=== PATIENT | female | born 1945 | race African-American/Black ===

== ENCOUNTER 2017-09-23 13:35 | Inpatient (IN) | payer OTHER ==
[~2017-09-23] VITALS: Ht 160 cm; Wt 61.7 kg
--- NOTE | ~2017-09-23 | HC ---
[facility] [place] [address] CONSULTATION Name: TAWANA CAMPBELL Room #: 358-P ADM IN M.R.#: [id number] Admission: 09/23/17 Attend Phys: Magdiel Stapleton MD Discharge: Date of : 41 Report #: [id number] THIS REPORT FOR: //name// CC: Magdiel Otto DATE OF SERVICE: 09/24/2017 HISTORY OF PRESENT ILLNESS: This is a 72-year-old female patient who was seen by me for the facial numbness. This patient is going for an MRI, so I saw her, and we will also see her later on today after the MRI. She indicates that she is having episodic numbness on the left side of the face for almost 2 weeks now. Her history is not very clear. It comes and goes, but how long it lasts is not clear. Usually it lasts just for a few minutes. It is not associated with any ataxia or ambulation difficulty. She is a diabetic, but she controls it with the diet and does not check her blood sugar very often and does not know what the blood sugar is when these episodes happen. This episode started spontaneously without any trauma and without any significant pain. REVIEW OF SYSTEMS: Indicates she is hypertensive, and she takes medications for that. She does have elevated blood sugar, and she controls it with diet. She does not have any prior history of stroke. She denies any anxiety or depression. She does have trouble with the right eye, which is old. She said she has lost the vision there because the doctor told she has cataract. Clinically that eye does not appear to have much vision. I carried out the 14-point review of systems from the patient as well as the chart, and this was her relevant review of system. She is not complaining of any cardiac, respiratory, GI, , musculoskeletal, constitutional, dermatological, hematological, psychiatric, throat or allergic symptom associated with present symptomatology. PAST MEDICAL HISTORY: Negative for any stroke. FAMILY HISTORY: Negative for any early age stroke. SOCIAL HISTORY: She indicates she does not drink any alcohol or smoke. PHYSICAL EXAMINATION: Indicates she is alert. She is responsive. She is able to follow simple and complex command. Her speech, concentration, fund of knowledge and memory are at her baseline. Cranial nerve examination 2-12 looks clinically unremarkable. Facial examination looks unremarkable, but the patient does have trouble with the right eye and that is old and is because of ophthalmological problem. She does appear to have a symmetrical strength, sensation, reflexes and tone in all 4 extremities. I cannot look at the fundus on the left side. There is no cerebellar sign. She does appear moderately built individual who does not have any dysmorphic features of the face and is [facility] [address] [place] [address] CONSULTATION Name: TAWANA CAMPBELL Room #: 358-P [facility] IN M.R.#: [id number] Admission: 09/23/17 Attend Phys: Magdiel Stapleton MD Discharge: Date of : 43 Report #: [id number] mainly having this pain and paraesthesia. Her vision in the left eye is good. Right eye she cannot see much. Her hearing is adequate. She does have pulses in the lower extremities, and there is no edema, cyanosis or jaundice. Cardiac examination appears unremarkable. She does not appear to be in any respiratory difficulty or has any rhonchi on either side. Blood pressure is 140/77, respirations 16, pulse is 79, temperature is 98.7. LABORATORY DATA: She is anemic with a hemoglobin of 9.4, in spite of the fact that the kidney function is normal. Her B12 was also normal. She did have a CT scan of the head when she came in and does not appear to be showing any acute abnormality. She does have significant chronic changes. IMPRESSION: Numbness which is episodic in the face of unknown etiology at the moment. I agree with the plan of working her up for a transient ischemic attack. She is scheduled for an MRI and a carotid Doppler, and we will see what does that show. I think we should also do some collagen vascular disorder workup, and I will order that. Further workup and management will depend upon the outcome of these testing. If these testing indicated that she does have findings suggestive of ischemic disease to the brain or transient ischemic attack, then we will manage accordingly. Otherwise, we will do some further workup. Thank you very much for this referral, and we will follow this patient along with you. <ELECTRONICALLY SIGNED> By: Selwyn Shah MD 09/25/17 1349 [id number] 1155 Selwyn Shah MD /nt
--- NOTE | ~2017-09-23 | EKG ---
[address] [employer] [place] [address] ELECTROCARDIOGRAM REPORT Name: TAWANA CAMPBELL Room #: 358-P ADM IN M.R.#: [id number] Admission: 09/23/17 Attend Phys: Magdiel Stapleton MD Discharge: Date of : 41 Report #: [id number] THIS REPORT FOR: //name// [facility] ED Test Date: 2017-09-23 Test Time: 13:53:18 Pat Name: TAWANA CAMPBELL Department: Room: Gender: F Piecer: TRUE : 1945 Requested By: Daya Chan Order Number: [id number] MD: Bryant Champion Measurements Intervals Goessel Rate: 82 P: 69 SD: 145 QRS: 31 QRSD: 90 T: 28 QT: 372 QTc: 435 Interpretive Statements Sinus rhythm LAE, consider biatrial enlargement Compared to ECG 04/08/2017 16:17:39 No significant changes Electronically Signed On 09-24-2017 7:03:17 CDT by Bryant Champion [email or web address] <ELECTRONICALLY SIGNED> By: Bryant Champion MD 09/24/17 0703 1353 Bryant Champion MD /SHAILESH
--- NOTE | ~2017-09-23 | 2DMMODE ---
[facility] [address] [place] [address] 2 D/M-MODE ECHOCARDIOGRAM Name: TAWANA CAMPBELL Room #: 358-P ADM IN M.R.#: [id number] Admission: 09/23/17 Attend Phys: Magdiel Stapleton, Discharge: Date of : 41 Date of Service: 09/24/17 1133 Report #: [id number] THIS REPORT FOR: //name// APPROVED REPORT Study performed: 09/24/2017 10:35:25 EXAM: Comprehensive 2D, Doppler, and color-flow Echocardiogram Patient Location: Echo lab Room #: 358 Status: routine BSA: 1.62 HR: 87 bpm BP: 140/77 mmHg Other Information Study Quality: Good Indications CVA/TIA Diabetes Hypertension/HDD Echo Enhancing Agent Indication: Rule out Shunt Agent(s) / Amount(s) Used: Agitated Saline 7 cc 2D Dimensions RVDd: 29.41 mm LVEF(%): 69.49 (>50%) IVSd: 7.60 (7-11mm) LVOT Diam: 17.56 (18-24mm) LVDd: 41.38 mm PWd: 8.26 (7-11mm) Ascending Ao: 28.18 (22-36mm) LVDs: 25.37 (25-40mm) Aortic Root: 26.69 mm IVC: 9.00 mm Escamilla's LVEF: 69.49 % Volumes Left Atrial Volume (Systole) Single Plane 4CH: 36.78 mL Single Plane 2CH: 42.26 mL LA ESV Index: 28.00 mL/m2 Aortic Valve AoV Peak Levon.: 1.88 m/s AO Peak Gr.: 14.16 mmHg LVOT Max P.97 mmHg LVOT Max V: 1.41 m/s [facility] [place] [address] 2 D/M-MODE ECHOCARDIOGRAM Name: SHANNANTAWANA ROYAL Room #: 358-P [facility] IN M.R.#: [id number] Admission: 09/23/17 Attend Phys: Magdiel Stapleton, Discharge: Date of : 41 Date of Service: 09/24/17 1133 Report #: [id number] ERIC Vmax: 1.82 cm2 Mitral Valve E/A Ratio: 0.7 MV Decel. Time: 404.00 ms MV E Max Levon.: 0.89 m/s MV A Levon.: 1.23 m/s MV PHT: 117.16 ms IVRT: 106.11 ms Pulmonary Valve PV Peak Levon.: 1.27 m/s PV Peak Gr.: 6.41 mmHg Pulmonary Vein P Vein S: 0.61 m/s P Vein A: 0.34 m/s P Vein D: 0.31 m/s P Vein A Dur.: 115.3 msec P Vein S/D Ratio: 1.97 Left Ventricle The left ventricle is normal size. There is normal LV segmental wall motion. There is normal left ventricular wall thickness. The left ventricular systolic function is hyperdynamic The left ventricular ejection fraction is within the normal range. LVEF 65%. Grade I - abnormal relaxation pattern. Right Ventricle The right ventricle is normal size. The right ventricular systolic function is normal. Atria The left atrium size is normal. No shunting by contrast bubble injection The right atrium size is normal. Aortic Valve The aortic valve is normal in structure. No aortic regurgitation is present. There is no aortic valvular stenosis. Mitral Valve The mitral valve is normal in structure. There is no mitral valve regurgitation noted. No evidence of mitral valve stenosis. Tricuspid Valve The tricuspid valve is normal in structure. There is no tricuspid valve regurgitation noted. Pulmonic Valve [address] [address] 2 D/M-MODE ECHOCARDIOGRAM Name: TAWANA CAMPBELL Room #: 358-P [facility] IN [facility]#: [id number] Admission: 09/23/17 Attend Phys: Magdiel Stapleton, Discharge: Date of : 41 Date of Service: 09/24/17 1133 Report #: [id number] The pulmonary valve is normal in structure. Trace pulmonic regurgitation. Great Vessels The aortic root is normal in size. IVC is normal in size and collapses >50% with inspiration. Pericardium There is no pericardial effusion. <Conclusion> The left ventricular systolic function is hyperdynamic There is normal LV segmental wall motion. LVEF 65-70%. Grade I diastolic dysfunction No shunting by contrast bubble injection The aortic valve is normal in structure. No aortic regurgitation or stenosis Structurally normal mitral valve. No mitral insufficiency Pulmonary artery pressure could not be reliably ascertained There is no pericardial effusion. <ELECTRONICALLY SIGNED> By: You aYn MD, FACC 09/24/17 1133 1133 1133 You Yan MD, FACC /INF
[~2017-09-23 13:35] MED LIST: HYDROCHLOROTH12.5 M1 PO; LISINOPRIL20 MG PO; NORVASC2.5 MG PO
[2017-09-23 13:53] VITALS: BP 171/83
[2017-09-23 14:26] LABS: ABSOLUTE NEUTROPHILS 2.8 thou/uL (1.4-8.2); EOSINOPHILS 0.6 % (0.0-3.0); HEMOGLOBIN 10.4 gm/dL (12.0-15.0); LYMPHOCYTES 32.4 % (24.0-44.0); MCH 22.2 pg (26.0-34.0); MCHC 33.4 g/dL (28.0-37.0); MCV 66.5 fL (80.0-100.0); MONOCYTES 10.1 % (1.0-8.0); PLATELET COUNT 343 thou/uL (150-400); POLYS 55.9 % (36.0-66.0); RBC 4.67 mil/uL (4.20-5.00); RDW 16.1 % (10.5-14.5)
[2017-09-23 14:38] LABS: CALCIUM 9.1 mg/dL (8.5-10.1); CREATININE 0.5 mg/dL (0.6-1.0); POTASSIUM 4.1 mmol/L (3.5-5.1)
[2017-09-23 15:09] LABS: URINE BILIRUBIN NEGATIVE (Negative); URINE BLOOD NEGATIVE (Negative); URINE CLARITY CLEAR; URINE COLOR YELLOW; URINE GLUCOSE-RANDOM* NEGATIVE (Negative); URINE KETONES NEGATIVE (Negative); URINE LEUKOCYTES 1+ (Negative); URINE NITRITE NEGATIVE (Negative); URINE PROTEIN (DIPSTICK) NEGATIVE (Negative); URINE SPECIFIC GRAVITY <= 1.005 (1.005-1.035); URINE UROBILINOGEN 0.2 E.U./dl (0.2-1.0)
[2017-09-23] MEDS ORDERED: LISINOPRIL-HCT1 EAC1 PO (15:17)
[2017-09-23] MEDS ORDERED: MULTIVITAMINS1 EAC7 PO (15:18)
[2017-09-23] MEDS ORDERED: CALCIUM ACETATE1 GM PO (15:19)
[2017-09-23 15:22] VITALS: BP 176/83
[2017-09-23 15:25] LABS: SQUAMOUS 0-3 Few /LPF (0-3)
[2017-09-23 15:26] LABS: BACTERIA None Seen /HPF (None Seen); CASTS None Seen /LPF (None Seen); CRYSTALS None Seen /LPF (None Seen); URINE RBC None Seen /HPF (0-2); URINE WBC 0-5 Rare /HPF (0-5)
[2017-09-23 15:29] LABS: ANISOCYTOSIS 1+; HYPOCHROMASIA 2+; MICROCYTES 2+
[2017-09-23 15:30] LABS: POIKILOCYTOSIS SLIGHT
[2017-09-23 16:22] VITALS: BP 174/82
[2017-09-23 16:30] VITALS: BP 181/79
[2017-09-23 19:04] LABS: ALBUMIN 4.4 g/dL (3.4-5.0); TOTAL PROTEIN 8.1 g/dL (6.4-8.2)
[2017-09-23 19:30] VITALS: BP 153/78
[2017-09-23 19:31] LABS: TSH 1.892 uIU/mL (0.358-3.740)
[2017-09-23 19:35] LABS: CALCIUM 8.8 mg/dL (8.5-10.1); CREATININE 0.7 mg/dL (0.6-1.0); POTASSIUM 3.7 mmol/L (3.5-5.1)
[2017-09-24] VITALS: BP 128/73
[2017-09-24 04:12] VITALS: BP 137/73
[2017-09-24 05:39] LABS: CALCIUM 8.3 mg/dL (8.5-10.1); CREATININE 0.6 mg/dL (0.6-1.0); HEMATOCRIT 28.5 % (37.0-47.0); HEMOGLOBIN 9.4 gm/dL (12.0-15.0); MAGNESIUM 2.1 mg/dL (1.8-2.4); MCHC 32.9 g/dL (28.0-37.0); MCV 66.8 fL (80.0-100.0); POTASSIUM 4.2 mmol/L (3.5-5.1); RBC 4.27 mil/uL (4.20-5.00); RDW 15.9 % (10.5-14.5); WBC 4.2 thou/uL (4.0-11.0)
[2017-09-24 07:34] VITALS: BP 140/77
[2017-09-24 12:28] LABS: CALCIUM 8.7 mg/dL (8.5-10.1); CREATININE 0.6 mg/dL (0.6-1.0)
[2017-09-24 16:20] VITALS: BP 152/79
[2017-09-24 19:15] VITALS: BP 139/76
[2017-09-25 04:00] VITALS: BP 125/71
[2017-09-25 06:36] LABS: HEMATOCRIT 32.7 % (37.0-47.0); HEMOGLOBIN 10.5 gm/dL (12.0-15.0); MCH 21.6 pg (26.0-34.0); MCHC 32.2 g/dL (28.0-37.0); MCV 67.1 fL (80.0-100.0); RBC 4.88 mil/uL (4.20-5.00); RDW 16.3 % (10.5-14.5); WBC 5.3 thou/uL (4.0-11.0)
[2017-09-25 06:47] LABS: CALCIUM 9.1 mg/dL (8.5-10.1); CREATININE 0.6 mg/dL (0.6-1.0); POTASSIUM 4.2 mmol/L (3.5-5.1)
[2017-09-25 08:43] VITALS: BP 147/76
[2017-09-25] MEDS ORDERED: LIPITOR10 MG PO (11:57)
[2017-09-25] MEDS ORDERED: ASA5UEC PO (11:57)
[2017-09-25] MEDS ORDERED: LISINOPRIL10 MG PO (11:58)
[2017-09-25 12:06] LABS: CHOLESTEROL 191 mg/dL (<200); HDL CHOLESTEROL 77 mg/dL (>40); LDL CHOLESTEROL 107 mg/dL (<100); TC:HDL 2.5 Ratio (Not establshd); TRIGLYCERIDE 37 mg/dL (<150); VLDL 7 mg/dL (<40)
[2017-09-25 13:00] VITALS: BP 147/76
== END 2017-09-25 15:54 | disposition home or self-care (01) | DRG 69 ==
LOC: ER 13:35 → EROBS 14:56 → 3W 14:56 → ENTRNSPT 09-25 15:10 → EDTRNSPTSTS 09-25 15:12 → 3W 09-25 15:54
PROVIDERS: Emergency Medicine; Internal Medicine; Psychiatry & Neurology Neuromuscular Medicine
DX: G45.9 Transient cerebral ischemic attack, unspecified (principal); E87.1 Hypo-osmolality and hyponatremia; I10 Essential (primary) hypertension; E11.9 Type 2 diabetes mellitus without complications; Z79.899 Other long term (current) drug therapy
CPT/HCPCS: 10779

== ENCOUNTER → 2020-10-19 | Outpatient (CLI) | payer OTHER ==
[~2020-10-19] MED LIST changes: +ASA5UEC PO; +ASA81BEC PO; +CALCIUM ACETATE1 GM PO; +COLACE100 MG PO; +COZAAR 25 MG TA25 M2 PO; +FISH OIL 1,0001 EAC9 PO; +HYDRALAZINE 2525 MG PO; +IRON325 M1 PO; +LIPITOR10 MG PO; +LISINOPRIL-HCT1 EAC1 PO; +LISINOPRIL10 MG PO; +LOSARTAN POTAS100 MG PO; +MIRALAX119 GM PO; +NORVASC5 MG PO; +OMEPRAZOLE40 MG PO; +RISEDRONATE SO150 MG PO; +SUPER THERAVIT1 EACH PO; +VITAMIN D3125 MC2 PO
[2020-10-19 13:04] LABS: URINE BILIRUBIN NEGATIVE (Negative); URINE BLOOD NEGATIVE (Negative); URINE CLARITY CLEAR; URINE COLOR YELLOW; URINE GLUCOSE-RANDOM* NEGATIVE (Negative); URINE KETONES NEGATIVE (Negative); URINE LEUKOCYTES-REFLEX TRACE (Negative); URINE NITRITE-REFLEX NEGATIVE (Negative); URINE PROTEIN (DIPSTICK) NEGATIVE (Negative); URINE UROBILINOGEN 0.2 E.U./dl (0.2-1.0)
[2020-10-19 13:08] LABS: HEMATOCRIT 34.3 % (37.0-47.0); MCH 22.4 pg (26.0-34.0); MCHC 32.2 g/dL (28.0-37.0); MCV 69.6 fL (80.0-100.0); RBC 4.92 mil/uL (4.20-5.00); RDW 16.6 % (10.5-14.5); WBC 5.8 thou/uL (4.0-11.0)
[2020-10-19 13:49] LABS: INR 1.02; PROTIME 11.1 Seconds (10.5-12.1)
[2020-10-19 14:08] LABS: CALCIUM 9.2 mg/dL (8.5-10.1); CREATININE 0.5 mg/dL (0.6-1.0)
[2020-10-20 00:06] LABS: GLYCOHEMOGLOBIN (HGB A1C) 6.2 % (4.8-5.6)
== END ==
LOC: PAC 12:13
PROVIDERS: ATTEND Orthopaedic Surgery
DX: Z01.812 Encounter for preprocedural laboratory examination (principal); M16.12 Unilateral primary osteoarthritis, left hip

== ENCOUNTER 2020-10-25 06:47 | Inpatient (IN) | payer OTHER ==
[~2020-10-25] VITALS: Ht 160 cm; Wt 60.8 kg
[~2020-10-25 06:47] MED LIST changes: -COLACE100 MG PO; -IRON325 M1 PO; -MIRALAX119 GM PO
[2020-10-25 07:45] VITALS: BP 178/85
[2020-10-25 12:14] VITALS: BP 165/82
[2020-10-25 13:30] VITALS: BP 143/71
[2020-10-25 14:11] VITALS: BP 115/80
--- NOTE | 2020-10-25 14:15 | NUR ---
ASSUMED PT CARE UPON TRANSFER TO UNIT AROUND 1130. PATIENT IS A&OX4, ABLE TO MAKE NEEDS KNOWN. NINA DRESSING INTACT, APPLYING ICE PACK TO SITE. PAIN MEDICATION GIVEN AND PAIN DECREASED ACCORDINGLY. IV PATENT, FLUIDS INFUSING. PATIENT REPORTS NO NUMBNESS OR TINGLING. PATIENT IS ON ROOM AIR. TOLERATING CLEAR LIQUID DIET. FALL PRECAUTIONS ARE IN PLACE, CALL LIGHT WITHIN REACH.
[2020-10-25 16:31] VITALS: BP 142/73
[2020-10-25 19:10] VITALS: BP 135/70
--- NOTE | 2020-10-26 02:52 | NUR ---
PT IS A/O X4 AND IS ON BEDREST POST SURGERY. ROOM AIR. VSS AFEBRILE. DENIES C/O PAIN OR DISCOMFORT. VOIDS PER BEDPAN AND IS LIGHT YELLOW. NO BM THIS SHIFT. HEMAVAC HAD BECOME DISCONNECTED WHILE PT WAS SLEEPING AND REPOSITIONING HERSELF. NURSE CHANGED NINA DRESSING AND REINFORCED AREA WHERE DRAIN IS CONNECTED. ICEPACK, KNEE HIGH LEONIE HOSE, AND SCD'S IN PLACE. FALL PRECAUTIONS IN PLACE, CALL LIGHT IS WITHIN REACH. PT HAS BEEN CALLING OUT APPROPRIATELY.
[2020-10-26 06:59] LABS: HEMATOCRIT 22.2 % (37.0-47.0); HEMOGLOBIN 7.3 gm/dL (12.0-15.0); MCH 22.6 pg (26.0-34.0); MCHC 32.8 g/dL (28.0-37.0); MCV 68.8 fL (80.0-100.0); RBC 3.23 mil/uL (4.20-5.00); RDW 16.5 % (10.5-14.5); WBC 7.7 thou/uL (4.0-11.0)
[2020-10-26 07:10] VITALS: BP 130/56
--- NOTE | 2020-10-26 08:00 | O ---
[facility] [place] [address] OPERATIVE REPORT Name: TAWANA CAMPBELL Room #: 434-P ADM IN M.R.#: [id number] Admission: 10/25/20 Attend Phys: Russell Combs MD Discharge: Date of : 43 Report #: [id number] THIS REPORT FOR: cc: Hannah Otto MD, Michelle R. MD Clymer, David J. MD ~ DOC #: [id number] Russell Combs MD DATE OF SERVICE: 10/25/2020 PREOPERATIVE DIAGNOSIS: End-stage degenerative arthritis, left hip. POSTOPERATIVE DIAGNOSIS: End-stage degenerative arthritis, left hip. PROCEDURE: Left total hip arthroplasty. SURGEON: Russell Combs MD INDICATIONS: This frail 75-year-old female has progressive left hip pain with limited ambulation. X-rays confirm severe degenerative change with some deformity of the femoral head. I have discussed with the patient and family treatment options and they have elected to go ahead with total hip arthroplasty. DESCRIPTION OF PROCEDURE: The patient was taken to the operating room where she was placed under general anesthesia. Prophylactic intravenous antibiotics were administered. She was turned to the right lateral decubitus position. The left hip, thigh and leg were meticulously prepped and draped. A slightly curving posterolateral skin incision was made. This was carried through fascia and gluteus to expose the posterior aspect of the hip joint. The short external rotators and capsule were taken down and preserved and tagged with several #1 FiberWire sutures. The hip was dislocated posteriorly. Marked degenerative change on both the femoral head and acetabulum was noted. A femoral neck osteotomy was performed. The canal was prepared with reamers and hand broaches using the Larios and Nephew hip system. A size 13 stem seemed to fit most appropriately. The calcar was trimmed down to an appropriate level. The trial broach was removed and attention directed to the acetabulum. The acetabulum was sequentially reamed, gradually advancing to a 52 mm reamer. A 52 mm acetabular shell using the 3-hole StikTite shell was selected. This was impacted into her acetabulum in alignment with her true acetabulum was placed in about 45 degrees off of vertical and about 20 degrees of anteversion. It seated nicely and appeared to be secure. Two screws were placed through the apical holes engaging good periacetabular bone with good additional purchase. A 36 mm polyethylene liner was then inserted placing the 20-degree elevated rim at about the 9 o'clock posterior position. It seated nicely and appeared to be secure. A trial reduction was performed and the hip seemed nicely reduced when using a size 13 stem and a +4 mm neck length. The trial stem was removed and the [facility] [address] [place] [address] OPERATIVE REPORT Name: TAWANA CAMPBELL Room #: 434-P [facility] IN M.R.#: [id number] Admission: 10/25/20 Attend Phys: Russell Combs MD Discharge: Date of : 41 Report #: [id number] permanent Larios and Nephew size 13 Synergy porous femoral stem was selected. This was impacted in the canal positioning this in about 15-20 degrees of anteversion. It seated nicely and appeared to be secure. A cobalt chrome 36 mm head with a +4 mm neck length was selected. This was impacted on the Walter taper and seated nicely. The hip was reduced. Alignment, range of motion, stability and leg length were assessed and felt to be satisfactory. The capsule and short external rotators were repaired back to bone. A single Hemovac was left in the wound exiting through a separate stab incision. The fascia was closed with multiple #1 Vicryl sutures. The adipose tissues and subcutaneous tissues were closed with 0 Monocryl. The skin was closed with skin juma. A sterile dressing was applied. The patient was awakened and returned to the recovery room in good condition. MD MAYRA Wayne/[facility] <ELECTRONICALLY SIGNED> By: Russell Combs MD 10/26/20 0800 0913 1021 Russell Combs MD /nt
[2020-10-26 09:17] LABS: CALCIUM 8.2 mg/dL (8.5-10.1); CREATININE 0.5 mg/dL (0.6-1.0); MAGNESIUM 1.6 mg/dL (1.8-2.4); POTASSIUM 3.7 mmol/L (3.5-5.1)
--- NOTE | 2020-10-26 11:40 | NUR ---
ASSESSMENT: CM REVIEWED CHART AND SPOKE WITH PATIENT AND HER SON WHO IS AT THE BEDSIDE. PT IS S/P L THR. PT REPORTS THAT SHE LIVES IN THE HOUSE WITH HER SON. PT HAS 1-2 STEPS TO ENTER THE HOME AND REPORTS ALL HER NEEDS ARE ON ONE LEVEL EXCEPT THE WASHER AND DRYER BUT SON CAN DO LAUNDRY. PT HAS ABOUT 10 STEPS WITH HANDRAILS TO WASHER/DRYER. PT REPORTS THAT SHE NORMALLY AMBULATES INDEPENDENTLY. PT STATES SHE THINKS SHE HAS A CANE AT HOME BUT NO WALKER. PT IS NEEDING A WALKER FOR DISCHARGE AND HAS NO PREFERENCE OF [facility]. CM REACHED OUT TO [employer] WHO IS OON. CM REACHED OUT TO [facility] AND THEY ARE VERIFYING INSURANCE. PT REPORTS SHE IS NORMALLY INDPENDENT WITH ADLS BUT DOES HAVE A SHOWER CHAIR. PT REPORTS SHE HAS NEVER HAD HH OR BEEN TO A SNF. CM REVIEWED PHYSICAL THERAPY NOTE WHO RECOMMENDS HOME OR OUTPATIENT. PT REPORTS SHE DOES NOT CURRENTLY HAVE OUTPATIENT ARRANGED. CM WILL CONTINUE TO FOLLOW TO ASSIST NEEDED.
--- NOTE | 2020-10-26 11:49 | NUR ---
ASSUMED PT CARE THIS AM. PT IS ALERT & ORIENTED X4. PT HAS IV SITE ON L AC SALINE LOCKED. PT IS UP WITH ASSIST X1. ADVANCED DIET THIS AM AND PT TOLERATED WELL. PT HAD SURGERY YESTERDAY. PT HAS NINA DRESSING, ICE PACK, THIGH HIGH [employer]IE [employer]ES. PT IS ON RPPM AIR. DISCONTINUE HEMOVAC WITH 25 ML OUTPUT. PT TOLERATED MEDICATION WELL. PT DENIES NAUSEA AND VOMITING. PT SON AT THE BEDSIDE. PHYSICAL THERAPY WILL BE WORKING WITH PT TODAY. PT ON THE BED, BED ON THE LOWEST POSITION, SIDE RAILS UP, CALL LIGHT WITHIN REACH. WILL CONTINUE TO MONITOR PT. FOLLOW POC.
[2020-10-26 16:38] VITALS: BP 131/61
[2020-10-26 19:15] VITALS: BP 124/58
[2020-10-27 04:14] VITALS: BP 137/67
[2020-10-27 05:49] LABS: HEMOGLOBIN 6.9 gm/dL (12.0-15.0); MCH 22.5 pg (26.0-34.0); MCHC 32.7 g/dL (28.0-37.0); RBC 3.06 mil/uL (4.20-5.00)
--- NOTE | 2020-10-27 05:50 | NUR ---
ASSUMED PT CARE AT 1915. PT LYING IN BED WITH BED ALARM ON. INTRODUCED SELF TO PT. WHITE BOARD WAS UPDATED. PT DID NOT EXPRESS ANY CONCERNS AND NO VISISBLE SIGN OF DISTRESS WAS NOTED. PT DID NOT HAVE A BOWEL MOVEMENT ON THIS SHIFT BED ON LOWEST LOCKED POSITION AND CALL LIGHT IS WITHIN REACH.
[2020-10-27 05:54] LABS: MCV 68.7 fL (80.0-100.0); RDW 16.3 % (10.5-14.5); WBC 8.7 thou/uL (4.0-11.0)
[2020-10-27 08:22] VITALS: BP 121/56
[2020-10-27 09:46] VITALS: BP 121/56
--- NOTE | 2020-10-27 11:53 | NUR ---
ON-GOING ASSESSMENT: CM REVIEWED CHART. PTS HEMOGLOBIN IS 6.9. PT IS CONTINUING TO WORK WITH THERAPY. POSSIBLE DISCHARGE HOME TOMORROW IF STABLE. CM SPOKE WITH SAM REGARDING HER WALKER AND SHE HAS A COPAY SHE OWES 20 PERCENT. PT IS AGREEABLE AND REPORTS SHE IS PAYING OVER THE PHONE. CM SPOKE WITH SAM WHO REPORTS HER WALKER WILL BE DELIVERED TODAY. CM WILL CONTINUE TO FOLLOW TO ASSIST NEEDED.
--- NOTE | 2020-10-27 12:22 | NUR ---
PT ALERT AND ORIENTED TIMES FOUR. VSS. PT C/O PAIN PRN PAIN MEDICATIONS CONTROLLING PAIN WELL. PT TOLERATES MEDS AND MEALS. PT WORKED VERY WELL WITH PT/OT UP WALKING AROUND THE UNIT. PT PROGRESSING TOWRADS POC GOALS.
[2020-10-27 17:18] VITALS: BP 119/57
[2020-10-27 18:57] VITALS: BP 123/49
[2020-10-28 07:31] VITALS: BP 131/70
[2020-10-28 07:54] LABS: HEMOGLOBIN 6.7 gm/dL (12.0-15.0); MCH 22.1 pg (26.0-34.0); MCHC 31.9 g/dL (28.0-37.0); MCV 69.3 fL (80.0-100.0); RBC 3.03 mil/uL (4.20-5.00); RDW 16.1 % (10.5-14.5); WBC 8.7 thou/uL (4.0-11.0)
--- NOTE | 2020-10-28 10:12 | NUR ---
ASSUMED PT CARE THIS AM. PT IS ALERT & ORIENTED X4. PT HAS IV SITE ON L AC SALINE LOCKED. PT IS UP WITH ASSIST X1 WITH GA[place]ELT AND WALKER. PT HAS NINA DRESSING, SCD. PT IS ON ROOM AIR. PT DID WELL WITH PHYSICAL THERAPY. PT TOLERATED MEDICATION AND DIET WELL. PT FAMILY AT THE BEDSIDE. PT ON THE BED, BED ON THE LOWEST POSITION, SIDE RAILS UP, CALL LIGHT WITHIN REACH. WILL CONTINUE TO MONITOR PT. FOLLOW POC.
--- NOTE | 2020-10-28 11:17 | NUR ---
ON-GOING ASSESSMENT: CM REVIEWED CHART. CM RECEIVED A CALL REQUESTING CM TO TALK WITH PATIENT. CM MET WITH PATIENT AND PT REPORTING SHE IS WANTING HOME HEALTH AT DISCHARGE. CM INDICATED IT HAS NOT CURRENTLY BEEN ORDERED BUT PT REPORTS SHE PREFERS TO HAVE HH AT DISCHARGE. CM NOTIFIED ATTENDING. PT WANTED TO SEE IF [facility] TOOK HER INSURANCE AND IF NOT HAS NO PREFERENCE OF HH AGENCY. CM SPOKE WITH [facility] WHO REPORTS THEY DO NOT ACCEPT HER INSURANCE. CM CONTACTED [facility] WHO STATES THEY WOULD REVIEW. CM FAXED REFERRAL AND AWAITING INPUT. PTS WALKER FOR HOME WAS ALSO DELIVERED TO HER ROOM.
[2020-10-28] MEDS ORDERED: COLACE100 MG PO (12:36)
[2020-10-28] MEDS ORDERED: MIRALAX119 GM PO (12:36)
[2020-10-28] MEDS ORDERED: IRON325 M1 PO (12:41)
[2020-10-28 15:40] VITALS: BP 121/56
== END 2020-10-28 12:27 | disposition home health service (06) | DRG 470 ==
LOC: CANPREIN → TBA 06:47 → 4S 06:47 → PRE 09:44 → 4S 11:55 → EDSTATUS 14:23 → PRE 14:39 → OR 16:23 → PRE 17:07 → 4S 10-28 12:27
PROVIDERS: ADMIT Orthopaedic Surgery; ATTEND Orthopaedic Surgery
PROC: 0SRB02Z Replacement of Left Hip Joint with Metal on Polyethylene Synthetic Substitute, Open Approach (ICD-10-PCS; principal; 2020-10-25)
DX: M16.12 Unilateral primary osteoarthritis, left hip (principal); D62 Acute posthemorrhagic anemia; I10 Essential (primary) hypertension; K21.9 Gastro-esophageal reflux disease without esophagitis; E11.9 Type 2 diabetes mellitus without complications; Z79.82 Long term (current) use of aspirin; Z79.899 Other long term (current) drug therapy; Z98.42 Cataract extraction status, left eye; Z98.41 Cataract extraction status, right eye; Z90.710 Acquired absence of both cervix and uterus; Z80.3 Family history of malignant neoplasm of breast
CPT/HCPCS: 10102; 50010; 50101; 50382; 50414; 51412; 53000; 53367; 56521; 56525; 56530; 57095; 57103; 62110; 62900; 70005